=== PATIENT | female | born 2000 ===

== ENCOUNTER → 2022-01-14 | Outpatient (CLI) | payer BC ==
[~2022-01-14] MED LIST: VALIUM 2 MG TAB2 MG PO
== END ==
LOC: RAD 16:09
DX: M25.572 Pain in left ankle and joints of left foot (principal); Z79.899 Other long term (current) drug therapy
CPT/HCPCS: 36415; 73630; 80307

== ENCOUNTER → 2022-01-15 | Outpatient (CLI) | payer BC | LOC: LAB 15:35 | DX: Z79.899 Other long term (current) drug therapy (principal) | CPT/HCPCS: 36415 ==